=== PATIENT | male | born 1995 | race Asian ===

== ENCOUNTER 2018-05-14 16:21 | Emergency (ER) | payer MEDICAID, OTHER ==
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
[2018-05-14] MEDS ORDERED: OXYCODONE/APAP 5/325 TAB PO ONE (18:14)
[2018-05-14 19:01] VITALS: BP 132/85
== END 2018-05-14 19:01 | disposition home or self-care (01) ==
PROC: 0PSJXZZ Reposition Left Radius, External Approach (ICD-10-PCS; principal; 2018-05-14)
DX: S52.592A Other fractures of lower end of left radius, initial encounter for closed fracture (principal); V18.0XXA Pedal cycle driver injured in noncollision transport accident in nontraffic accident, initial encounter; Y93.55 Activity, bike riding; Y92.9 Unspecified place or not applicable; Y99.9 Unspecified external cause status
CPT/HCPCS: A4565